=== PATIENT | male | born 1990 | race African-American/Black ===

== ENCOUNTER 2019-07-16 09:03 | Emergency (ER) | payer OTHER ==
[~2019-07-16] VITALS: Ht 190.5 cm; Wt 156.5 kg
[~2019-07-16 09:03] MED LIST: RIBOFLAVIN100 MG PO
[2019-07-16 09:14] VITALS: BP 130/85
--- NOTE | 2019-07-16 09:14 | NUR ---
ED Nurse Note: Pt walked in to ED from home c/o back pain 08/30 since yesterday. Per pt, he twisted his upper body. Denies fall/ injury. Not in any distress. S/O at bedside.
--- NOTE | 2019-07-16 09:17 | NUR ---
ED Nurse Note: ERMD at bedside.
[2019-07-16] MEDS ORDERED: ROBAXIN-750750 MG PO (09:22)
[2019-07-16] MEDS ORDERED: LIDODERM700 M1 TOPIC (09:22)
[2019-07-16] MEDS ORDERED: IBUPROFEN600 MG ORAL (09:22)
--- NOTE | 2019-07-16 09:25 | Emergency Room Report ---
History of Present Illness General Chief Complaint: Back Pain-No Injury Source: Patient Present Illness HPI Disclaimer: Please note that this report is being documented using [employer] technology. This can lead to erroneous entry secondary to incorrect interpretation by the dictating instrument. HPI: 29-year-old otherwise healthy male presents for evaluation of back pain. Symptoms began this morning when he went to work. He states he twisted to the left side after which she felt a sharp pain in the left scapula and that his upper back "seized up." He says he was having difficulty moving and getting up from a seated position or sitting down. Pain did not radiate. There was no injury or fall. No prior history of back pain. Has been steadily loosening throughout the morning. He applied some [place] balm medicated lotion on it with some improvement. Denies any numbness, tingling or weakness of the extremities. Denies any pain or limitation in range of motion in the cervical spine or in the lower lumbar spine. PMH: Denies PSH: Denies Allergies: Denies Allergies: Coded Allergies: No Known Allergies (Unverified , 05/21/19) Nursing Documentation-PMH Past Medical History: No Stated History Review of Systems All Other Systems: negative except mentioned in HPI Physical Exam Vital Signs Date Time Temp Pulse Resp B/P (MAP) Pulse Ox O2 Delivery O2 Flow Rate FiO2 07/16/19 09:07 98.1 79 17 130/85 (100) 100 Room Air General: Awake and alert, no acute distress HEENT: NC/AT. EOMI. Resp: Normal work of breathing Skin: Intact. No abrasions, laceration or rash over the exposed skin MSK: Normal tone and bulk. Moving all extremities. No obvious deformity. No limitation to range of motion in the upper extremities. Neuro: Awake and alert. Mentating appropriately Back: There is no tenderness, step-off or deformity in the cervical, thoracic or lumbosacral spine. There is moderate paraspinal tenderness and pain just medial to the tip of the left scapula. Reproducible to palpation. Medical Decision Making Diagnostic Impression: Primary Impression: Back spasm ER Course 29-year-old male presents for evaluation of atraumatic back pain that is improving throughout the morning. Patient appears to have a muscular spasm/ strain. There is no injury reported he has no tenderness in the midline over the spinous processes. Does not require emergent imaging at this time. Patient likely experiencing a spasm which apparently is improving after topical medications. We will continue topical lidocaine patches but can also add Motrin and Robaxin for further treatment. Advised him on stretching exercises and heat therapy as well. He will follow-up with his PMD. Last Vital Signs Date Time Temp Pulse Resp B/P (MAP) Pulse Ox O2 Delivery O2 Flow Rate FiO2 07/16/19 09:14 98.1 74 17 130/85 100 Room Air Disposition: HOME, SELF-CARE Condition: Stable Scripts Methocarbamol* (ROBAXIN-750*) 750 Mg Tablet 750 MG PO TID, #21 TAB 0 Refills Prov: Parminder Bazzi MD 07/16/19 Lidocaine Patch* (Lidoderm Patch*) 1 Each Adh..patch 1 PATCH TOPIC DAILY, #7 PATCH 0 Refills Patch(es) may remain in place for up to 12 hours in any 24-hour period. Prov: Parminder Bazzi MD 07/16/19 Ibuprofen* (MOTRIN*) 600 Mg Tablet 600 MG ORAL Q8H PRN for For Pain, #30 TAB 0 Refills Prov: Parminder Bazzi MD 07/16/19 Referrals: [facility] Open 24 hour /7 days a week by Appointment Only [address] [address] Departure Forms: Return to Work Return to Work Date: Jul 17, 2019 Work Restrictions: None Return to Full Activity: Jul 17, 2019 Patient Instructions: Heat Therapy Additional Instructions: Use the medications as prescribed for treatment of your back spasm. Continue to stretch and apply heat to loosen things up. Remain active to avoid stiffness. He can return to work tomorrow without restrictions. Please follow- up with your primary care doctor in the next 1 to 3 days to discuss this emergency department visit and for reevaluation. If you have any new or worsening symptoms please return to the emergency department for reevaluation. Please note that this report is being documented using [employer] technology. This can lead to erroneous entry secondary to incorrect interpretation by the dictating instrument. Parminder Bazzi MD Jul 16, 2019 09:25
[2019-07-16 09:38] VITALS: BP 130/85
--- NOTE | 2019-07-16 09:38 | NUR ---
ED Nurse Note: Pt cleared by ERMD for discharge. DC instructions was given and explained to pt and verbalized understanding of teachings. All medical deviecs such as ID band removed. Pt is AAO x4, ambulatory and left with all personal belongings. Accompanied by his s/o.
== END 2019-07-16 09:38 | disposition home or self-care (01) ==
LOC: EMR 09:20
DX: M62.830 Muscle spasm of back (principal)
CPT/HCPCS: 99282